=== PATIENT | female | born 1965 | race Caucasian/White ===

== ENCOUNTER 2021-09-23 11:31 | Observation (INO) ==
[2021-09-23 12:42] LABS: Basophils # 0.1 K/mcL (0.0-0.2); Basophils % 0.3 %; Eosinophils % 0.1 %; Hematocrit 19.3 % (35.3-44.9); Hemoglobin 6.3 g/dL (11.5-15.4); Immature Granulocytes % 2.5 % (0-4); Lymphocytes # 2.2 K/mcL (0.6-4.6); Lymphocytes % 12.9 %; Mean Corpuscular HGB Conc 32.6 g/dL (31.6-35.5); Mean Corpuscular Hemoglobin 33.3 pg (28.0-33.3); Mean Corpuscular Volume 102.1 fL (83.0-100.0); Mean Platelet Volume 9.2 fL (9.4-12.4); Monocytes # 1.6 K/mcL (0.0-1.3); Monocytes % 9.5 %; Neutrophils # 12.9 K/mcL (1.6-8.9); Nucleated Red Blood Cells 0.2 /100 WBC (0); Platelet Count 510 K/mcL (140-400); Red Blood Count 1.89 M/mcL (3.82-4.97); Red Cell Distribution Width 30.6 % (11.5-14.5); Segmented Neutrophils % 74.7 %; White Blood Count 17.3 K/mcL (4.3-11.1)
[2021-09-23 12:51] LABS: INR 1.4; Prothrombin Time 15.8 Seconds (9.4-12.1)
[2021-09-23 12:52] LABS: Activated Partial Thrombo Time 29.9 Seconds (26.0-36.0)
[2021-09-23 13:01] LABS: BUN/Creatinine Ratio 9 (6-26); Blood Urea Nitrogen 8 mg/dL (6-20); Calcium 8.8 mg/dL (8.6-10.3); Carbon Dioxide 29 mEq/L (23-29); Chloride 101 mEq/L (98-107); Glucose 103 mg/dL (70-105); Osmolality,Calculated 285 (280-300); Potassium 3.5 mEq/L (3.5-5.1); Sodium 138 mEq/L (136-145); eGFR For African Americans > 60 (> 60); eGFR For Non-African Americans > 60 (> 60)
[2021-09-23 13:33] LABS: Anisocytosis 2+ (Not Present); Poikilocytosis 2+ (Not Present)
[2021-09-23 13:34] LABS: Platelet Estimate Increased (Normal); Polychromasia 1+ (Not Present)
[2021-09-23] MEDS ORDERED: 0.9 % Sodium Chloride 500 ML ONE (15:02)
[2021-09-23] MEDS ORDERED: Morphine Sulfate 2 MG/ML SYRINGE IVP ONE (15:25)
[2021-09-23] MEDS ORDERED: *HR* OxyCODONE Immed Rel 5 MG TABLET PO ONE (15:26)
[2021-09-23] MEDS ORDERED: Pantoprazole 40 MG VIAL IVP ONE (16:21)
[2021-09-23] MEDS ORDERED: *HR* HYDROcodone/Acet 5/325 mg TABLET PO PRN (16:40)
[2021-09-23] MEDS ORDERED: Ondansetron 4 MG/2 ML VIAL IVP PRN (16:40)
[2021-09-23] MEDS ORDERED: Naloxone 0.4 MG/ML INJ IVP PRN (16:40)
[2021-09-23] MEDS ORDERED: *HR* Dextrose 50 % in Water (Syg) 50 ML SYRINGE IVP PRN (16:45)
[2021-09-23] MEDS ORDERED: Dextrose 4 GM Chewable Tablets PO PRN ×2 (16:45)
[2021-09-23] MEDS ORDERED: D5% in Water 1,000 ML IVC PRN (16:45)
[2021-09-23] MEDS ORDERED: *HR* OxyCODONE/APAP 5/325 TABLET PO PRN (16:52)
[2021-09-23] MEDS ORDERED: Ipratropium/Albuterol Neb 3 ML IH PRN (16:52)
[2021-09-23] MEDS: Insulin LISPRO 300 UNITS/3 ML VIAL SUBQ SCH (18:47)
[2021-09-23 19:34] LABS: Hemoglobin 7.6 g/dL (11.5-15.4)
[2021-09-23] MEDS: Morphine Sulfate ER (12 HR) 15 MG TABLET.ER PO SCH (20:06)
[2021-09-23] MEDS: Hydroxyurea 500 MG CAPSULE PO SCH (20:10)
[2021-09-24] MEDS: Insulin LISPRO 300 UNITS/3 ML VIAL SUBQ SCH ×5 (02:19→23:13)
[2021-09-24 07:35] LABS: BUN/Creatinine Ratio 8 (6-26); Blood Urea Nitrogen 6 mg/dL (6-20); Calcium 8.6 mg/dL (8.6-10.3); Carbon Dioxide 28 mEq/L (23-29); Chloride 105 mEq/L (98-107); Glucose 96 mg/dL (70-105); Magnesium 1.9 mg/dL (1.6-2.6); Osmolality,Calculated 285 (280-300); Potassium 3.7 mEq/L (3.5-5.1); Sodium 139 mEq/L (136-145); eGFR For African Americans > 60 (> 60); eGFR For Non-African Americans > 60 (> 60)
[2021-09-24] MEDS: Pantoprazole 40 MG VIAL IVP SCH ×2 (07:56→21:00)
[2021-09-24] MEDS: Loratadine 10 MG TABLET PO SCH (07:56)
[2021-09-24] MEDS: Folic Acid 1 MG TABLET PO SCH (07:57)
[2021-09-24] MEDS: Hydroxyurea 500 MG CAPSULE PO SCH (07:57)
[2021-09-24] MEDS: Morphine Sulfate ER (12 HR) 15 MG TABLET.ER PO SCH ×2 (07:57→21:01)
[2021-09-24] MEDS: Nicotine 14 MG PATCH.TD24 TD SCH (09:50)
[2021-09-24 10:09] LABS: Bilirubin,Urine Negative (Negative); Blood,Urine Negative (Negative); Clarity,Urine Clear (Clear); Color,Urine Light-Yellow (Yellow); Glucose,Urine (UA) Normal (Normal); Ketones,Urine Negative (Negative); Leukocyte Esterase,Urine Negative (Negative); Nitrite,Urine Negative (Negative); Protein,Urine Negative (Neg-Trace); Urobilinogen,Urine Normal (Normal)
[2021-09-24] MEDS ORDERED: Tetracaine/Benzocaine/Butamben 1 SPRAY AEROSOL MM ONE (10:12)
[2021-09-24 10:35] LABS: Basophils % 0.4 %; Eosinophils % 0.2 %; Hemoglobin 7.7 g/dL (11.5-15.4); Immature Granulocytes % 2.4 % (0-4); Lymphocytes # 1.3 K/mcL (0.6-4.6); Lymphocytes % 15.5 %; Mean Corpuscular HGB Conc 33.5 g/dL (31.6-35.5); Mean Corpuscular Hemoglobin 32.5 pg (28.0-33.3); Mean Platelet Volume 9.4 fL (9.4-12.4); Monocytes # 1.4 K/mcL (0.0-1.3); Monocytes % 16.3 %; Neutrophils # 5.4 K/mcL (1.6-8.9); Platelet Count 496 K/mcL (140-400); Red Blood Count 2.37 M/mcL (3.82-4.97); Red Cell Distribution Width 28.8 % (11.5-14.5); Segmented Neutrophils % 65.2 %
[2021-09-24 10:41] LABS: White Blood Count 8.3 K/mcL (4.3-11.1)
[2021-09-24 11:00] LABS: Anisocytosis 3+ (Not Present); Polychromasia 1+ (Not Present)
[2021-09-24] MEDS ORDERED: Simethicone 40 MG/0.6 ML MLS IR ONE (11:06)
[2021-09-24] MEDS: *HR* OxyCODONE Immed Rel 15 MG TABLET PO PRN (13:38)
[2021-09-25] MEDS: *HR* OxyCODONE Immed Rel 15 MG TABLET PO PRN ×2 (00:09→12:28)
[2021-09-25 05:07] LABS: INR 1.2; Prothrombin Time 13.3 Seconds (9.4-12.1)
[2021-09-25] MEDS: Insulin LISPRO 300 UNITS/3 ML VIAL SUBQ SCH ×3 (05:59→17:30)
[2021-09-25] MEDS: Pantoprazole 40 MG VIAL IVP SCH (08:31)
[2021-09-25] MEDS: Nicotine 14 MG PATCH.TD24 TD SCH (08:31)
[2021-09-25] MEDS: Morphine Sulfate ER (12 HR) 15 MG TABLET.ER PO SCH ×2 (08:32→19:42)
[2021-09-25] MEDS: Folic Acid 1 MG TABLET PO SCH (08:32)
[2021-09-25] MEDS: Loratadine 10 MG TABLET PO SCH (08:32)
[2021-09-25 09:03] LABS: Hematocrit 22.7 % (35.3-44.9); Hemoglobin 7.5 g/dL (11.5-15.4)
[2021-09-25] MEDS: Apixaban 5 MG TABLET PO SCH (19:43)
[2021-09-26 03:25] LABS: Hematocrit 23.4 % (35.3-44.9); Hemoglobin 7.8 g/dL (11.5-15.4); Mean Corpuscular HGB Conc 33.3 g/dL (31.6-35.5); Mean Corpuscular Hemoglobin 32.9 pg (28.0-33.3); Mean Corpuscular Volume 98.7 fL (83.0-100.0); Mean Platelet Volume 8.9 fL (9.4-12.4); Platelet Count 581 K/mcL (140-400); Red Blood Count 2.37 M/mcL (3.82-4.97); Red Cell Distribution Width 30.1 % (11.5-14.5); White Blood Count 6.4 K/mcL (4.3-11.1)
[2021-09-26 03:34] LABS: INR 1.4; Prothrombin Time 15.9 Seconds (9.4-12.1)
[2021-09-26 03:52] LABS: % Iron Saturation 7 % (15-50); BUN/Creatinine Ratio 8 (6-26); Blood Urea Nitrogen 7 mg/dL (6-20); Calcium 8.8 mg/dL (8.6-10.3); Carbon Dioxide 29 mEq/L (23-29); Chloride 103 mEq/L (98-107); Glucose 97 mg/dL (70-105); Iron 19 mcg/dL (50-170); Osmolality,Calculated 286 (280-300); Potassium 4.4 mEq/L (3.5-5.1); Sodium 139 mEq/L (136-145); Transferrin 196 mg/dL (203-362); eGFR For African Americans > 60 (> 60); eGFR For Non-African Americans > 60 (> 60)
[2021-09-26 04:00] LABS: Anisocytosis 1+ (Not Present); Hypochromasia Present (Not Present); Lymphocytes # 1.8 K/mcL (0.6-4.6); Monocytes # 0.6 K/mcL (0.0-1.3); Platelet Estimate Increased (Normal)
[2021-09-26 04:04] LABS: Ferritin 280 ng/mL (10-120)
[2021-09-26 04:12] LABS: Folate > 22.3 ng/mL (3.0-16.0); Vitamin B12 > 1500 pg/mL (250-1100)
[2021-09-26] MEDS: Insulin LISPRO 300 UNITS/3 ML VIAL SUBQ SCH ×3 (05:27→12:46)
[2021-09-26] MEDS: *HR* OxyCODONE Immed Rel 15 MG TABLET PO PRN ×2 (05:55→12:51)
[2021-09-26] MEDS ORDERED: Iron Sucrose Complex 400 MG in 0.9 % Sodium Chloride 250 ML IVPB ONE ×2 (07:30→07:31)
[2021-09-26 07:41] VITALS: BP 105/62; PULSE 70; TEMP 98.2; O2SAT 95
[2021-09-26] MEDS ORDERED: Multivit/Ca/Min/Fe/FA 1 TAB TABLET PO SCH (09:00)
[2021-09-26] MEDS: Morphine Sulfate ER (12 HR) 15 MG TABLET.ER PO SCH (09:51)
[2021-09-26] MEDS: Folic Acid 1 MG TABLET PO SCH (09:51)
[2021-09-26] MEDS: Nicotine 14 MG PATCH.TD24 TD SCH (09:51)
[2021-09-26] MEDS: Loratadine 10 MG TABLET PO SCH (09:51)
[2021-09-26] MEDS: Apixaban 5 MG TABLET PO SCH (09:52)
== END 2021-09-26 13:00 | disposition home or self-care (01) ==
LOC: 3ANU 11:31 → EMEROOARM 11:31 → SUATTDRO 16:52 → 3ANU 17:43
PROVIDERS: ADMIT Internal Medicine; ATTEND Internal Medicine
PROC: ENDOEBX (2021-09-24 10:30)